=== PATIENT | male | born 1975 | race Caucasian/White ===

== ENCOUNTER 2019-02-21 10:37 | Inpatient (IN) ==
--- NOTE | 2019-02-21 10:58 | Emergency Department Note ---
Disposition Clinical Impression: Suicidal ideation Disposition: Admitted As Inpatient Condition: Good Forms: ED Satisfaction Letter Time of Disposition: 14:10 Psych HPI - General Chief Complaint: ED Psychiatric Symptoms Stated Complaint: SI Time Seen by Provider: 02/21/19 10:48 Source: patient, EMS Mode of arrival: EMS Nursing Notes Reviewed: Yes Vital Signs Reviewed: Yes - History of Present Illness HPI Narrative: This is a 43-year-old gentleman with a long psychiatric history who presents today for evaluation for suicidal ideation. Patient states that he was recently diagnosed with cirrhosis and states that he is tired of living. He states that he wants to drink himself to . He has been drinking heavily. His last intake was yesterday. Patient was seen at our sister facility and had a medical workup. He was sent here for evaluation by psychiatry for admission. He complains of some nausea but no vomiting. He has no new physical complaints. Pt complaint: suicidal ideation, feels depressed Onset (ago): day(s) History of similar episodes: Yes Context: recent alcohol abuse Associated Psychiatric Symptoms: depression, suicidal ideation - Related Data Home Medications Medication Instructions Recorded Confirmed Benztropine [Cogentin] 5 mg PO DAILY 02/21/19 02/21/19 OLANZapine [Zyprexa Zydis] 10 mg PO BID 02/21/19 02/21/19 chlorproMAZINE [Thorazine] 100 mg PO DAILY 02/21/19 02/21/19 Previous Rx's Medication Instructions Recorded Nicotine Patch [Nicoderm] 21 mg TD DAILY #30 patch.[id number] 02/20/19 Tramadol HCl [Ultram] 50 mg PO TID PRN 4 Days #12 tab 02/20/19 Allergies Allergy/AdvReac Type Severity Reaction Status Date / Time Cyclobenzaprine Allergy Rash Verified 02/19/19 10:45 [From Flexeril] hydroxyzine [From Vistaril] Allergy Swelling Verified 02/19/19 10:45 of Lip/Tongue/Throat ketorolac [From Toradol] Allergy Rash Verified 02/19/19 10:45 naproxen [From Naprosyn] Allergy Hives Verified 02/19/19 10:45 Penicillins Allergy Rash Verified 02/19/19 10:45 haloperidol [From Haldol] AdvReac Agitated Verified 02/19/19 10:45 ibuprofen AdvReac Abdominal Verified 02/19/19 10:45 Pain All systems ED: reviewed and negative except as stated. Constitutional: Denies: fever, chills Cardiovascular: Denies: chest pain, palpitations Respiratory: Denies: cough, dyspnea Gastrointestinal: Reports: abdominal pain, nausea. Denies: vomiting Psychiatric: Reports: depression, suicidal thoughts. Denies: homicidal thoughts, auditory hallucinations, visual hallucinations Past Medical History - Past Medical History Medical history: Reports: arthritis, cirrhosis, COPD, hypertension, myocardial infarction, TIA Surgical history: Reports: orthopedic, other Psychiatric history: Reports: schizophrenia, previous psychiatric hospitalization - Social History Smoking Status: Current every day smoker Smokeless Tobacco Status: Yes Alcohol use: Reports: heavy, recent Drug use: Reports: opiates, marijuana, other Physical Exam - General Limitations: no limitations General appearance: alert - Head Head exam: atraumatic, normocephalic, normal inspection - Eye Eye exam: Present: normal appearance, PERRL, EOMI - Expanded Eye Exam Pupils: Left: reactive - ENT ENT exam: normal exam, normal oropharynx, mucous membranes moist - Expanded ENT Exam External ear exam: Present: normal external inspection Mouth exam: Present: normal external inspection Teeth exam: Present: normal inspection Throat exam: Present: normal inspection - Neck Neck exam: Present: normal inspection, full ROM, trachea midline - Chest Chest inspection: Present: normal inspection, symmetric chest wall rise - Respiratory Respiratory exam: Present: normal lung sounds bilaterally - Cardiovascular Cardiovascular exam: Present: regular rate, normal rhythm, normal heart sounds - Abdominal Exam Abdominal exam: Present: soft, Non-Tender. Absent: tenderness, distention, guarding, rebound, rigidity - Extremities Exam Extremities exam: Present: normal inspection, full ROM. Absent: tenderness, pedal edema - Expanded Upper Extremity Exam Shoulder exam: Present: normal inspection, full ROM Arm exam: Present: normal inspection, full ROM Elbow exam: Present: normal inspection, full ROM Forearm/Wrist exam: Present: normal inspection, full ROM Hand exam: Present: normal inspection, full ROM Vascular exam: Normal: capillary refill, radial pulse - Expanded Lower Extremity Exam Hip/Pelvis exam: Present: normal inspection, full ROM Upper leg exam: Present: normal inspection, full ROM Knee exam: Present: normal inspection, full ROM Lower leg exam: Present: normal inspection, full ROM Ankle exam: Present: normal inspection, full ROM Foot/toe exam: Present: normal inspection, full ROM Neurovascular/Tendon exam: Absent: motor deficit, sensory deficit, tendon deficit - Back Exam Back exam: Present: normal inspection, full ROM. Absent: tenderness - Neurological Exam Neurological exam: Present: alert, oriented X3 - Expanded Neurological Exam Patient oriented to: Present: person, place, time Coma Scale Eye Opening: Spontaneous Coma Scale Motor Response: Obeys Commands Coma Scale Verbal Response: Oriented Coma Scale Total: 15 - Psychiatric Psychiatric exam: Present: depressed, flat affect, suicidal ideation - Expanded Psychiatric Exam Expanded psych exam: Present: poor eye contact - Skin Skin exam: Present: warm, dry, intact, normal color Course Vital Signs Temperature 98.2 F 02/21/19 10:41 Pulse Rate 77 02/21/19 10:41 Respiratory Rate 18 02/21/19 10:41 Blood Pressure 137/81 02/21/19 10:41 O2 Sat by Pulse Oximetry 97 02/21/19 10:41 Temperature 98.2 F 02/21/19 10:41 Pulse Rate 77 02/21/19 10:41 Respiratory Rate 18 02/21/19 10:41 Blood Pressure 137/81 02/21/19 10:41 O2 Sat by Pulse Oximetry 97 02/21/19 10:41 Oxygen Delivery Oxygen Delivery Room Air Psych - MDM Narrative Medical decision making narrative: Treatment the patient is insistent with suicidal ideation. I reviewed labs done today. Pt is medically cleared for BH assessment and placement. 1410 Patient has been seen by psychiatric team. Patient will be admitted. Psychiatric Medical Clearance - Medical Clearance Checklist Medical History: No Social History Section defined Current Vitals: Last Vital Signs Temp 98.2 F 02/21/19 10:41 Pulse 77 02/21/19 10:41 Resp 18 02/21/19 10:41 BP 137/81 02/21/19 10:41 Pulse Ox 97 02/21/19 10:41 Statement of Medical Clearance: I have evaluated the patient, reviewed diagnostic information, and certify that the patient's medical condition is sufficiently stable that transfer to the psychiatric unit does not pose a significant risk of deterioration.
[2019-02-21] MEDS ORDERED: *HR* LORazepam 1 MG TABLET PO PRN (16:44)
[2019-02-21] MEDS ORDERED: MOM Conc 10 ML UD.LIQ PO PRN (16:44)
[2019-02-21] MEDS ORDERED: Haloperidol Lactate 5 MG/ML VIAL IM PRN (16:44)
[2019-02-21] MEDS ORDERED: Ibuprofen 400 MG TABLET PO PRN (16:44)
[2019-02-21] MEDS ORDERED: *HR* LORazepam 2 MG/ML VIAL IM PRN (16:44)
[2019-02-21] MEDS ORDERED: Mag Hydrox/Al Hydrox/Simeth 30 ML UDC PO PRN (16:44)
[2019-02-21] MEDS ORDERED: hydrOXYzine pamoate 25 MG CAPSULE PO PRN (16:44)
[2019-02-21] MEDS: OLANZapine 10 MG TAB.RAPDIS PO SCH (21:48)
--- NOTE | 2019-02-22 09:43 | Psychiatry History & Physical ---
Date of Encounter: 02/22/19 Time of Encounter: 09:41 History of Present Illness Patient Stated Chief Complaint: Suicidal Ideation Medicare Admission Attestation: For traditional Medicare patients the provided hospital inpatient services are reasonable and necessary and in the case of services not specified as inpatient-only under 42 CFR 419.22 (n), that they are appropriately provided as inpatient services in accordance 42 CFR 412.3. For Critical Access Hospital the patient may reasonably be expected to be discharged or transferred to a hospital within 96 hours after admission to the Critical Access Hospital. Admitted From: Emergency Dept Plans for Post Hospital Care: Home History of Present Illness: Mr. Mclaughlin is a 43 year old male with history of Hepatitis C, cirrhosis, current alcohol abuse, CAD, CVA, recently diagnosed kidney tumor, and psychiatric illnesses currently prescribed Zyprexa presents to ED yesterday after was discharged from [facility] unit the day before for suicidal ideation. His last hospital admission 02/19 was also for SI and alcohol withdrawal. He states that he was overburdened by the news of his recently diagnosed illnesses and says that he could not take it anymore and so wanted to drink himself to . He stopped taking the medications prescribed to him about 3 weeks ago, thats when he started drinking heavily, 14-16 beers a day. Before learning about his diagnoses, he was sober for 1 month; before that, patient was drinking approximately 6 beers per day. Patient was seen and examined at bedside today. Patient is AOx3. He reports that he came to the ED because he was not doing well, "it's my health". Denies EtOH intake between the admissions. Denies current and past suicidal and homicidal ideation. No visual or auditory hallucinations. Reports feeling hopeless, weak, poor appetite but still enjoys food. Denies history of manic episodes or high- low cycling. Admits to history of anxiety, panic attacks, depression, and schizophrenia. Reports feeling well on Mellaril and Zyprexa in the past but he stopped taking them 3 weeks ago. No tremors or hallucinations on exam today. Endorses smoking "sometimes" and a remote history of marijuana use. Past Med Surg Social Fam HX - Past Medical History Medical history: arthritis, cirrhosis, COPD, hypertension, myocardial inf arction, TIA - Past Surgical History Surgical History: orthopedic, other - Social History Smoking Status: Current every day smoker Smokeless Tobacco Status: Yes Alcohol use: heavy, recent Drug use: opiates, marijuana, methamphetamine, other - Family History Mother Living Status: Still Living Father Living Status: Hx Family Cardiac Disorders: Yes (hypertension, pacemaker) Hx Family Cancer: Yes Medications & Allergies Nicotine Patch [Nicoderm] 21 mg TD DAILY #30 patch.td24 02/20/19 [Rx] Tramadol HCl [Ultram] 50 mg PO TID PRN 4 Days #12 tab 02/20/19 [Rx] Benztropine [Cogentin] 5 mg PO DAILY 02/21/19 [History] OLANZapine [Zyprexa Zydis] 10 mg PO BID 02/21/19 [History] chlorproMAZINE [Thorazine] 100 mg PO DAILY 02/21/19 [History] Allergy/AdvReac Type Severity Reaction Status Date / Time Cyclobenzaprine Allergy Rash Verified 02/19/19 10:45 [From Flexeril] hydroxyzine [From Vistaril] Allergy Swelling Verified 02/19/19 10:45 of Lip/Tongue/Throat ketorolac [From Toradol] Allergy Rash Verified 02/19/19 10:45 naproxen [From Naprosyn] Allergy Hives Verified 02/19/19 10:45 Penicillins Allergy Rash Verified 02/19/19 10:45 haloperidol [From Haldol] AdvReac Agitated Verified 02/19/19 10:45 ibuprofen AdvReac Abdominal Verified 02/19/19 10:45 Pain Review of Systems Constitutional: Denies: fever, chills Eyes: Denies: vision change Ears, Nose, Throat: Denies: hearing loss Cardiovascular: Denies: chest pain Respiratory: Denies: cough, dyspnea Gastrointestinal: Denies: abdominal pain, nausea, vomiting Genitourinary male: Denies: urgency, dysuria Musculoskeletal: Reports: back pain, joint pain Integumentary: Denies: rash, lesions Neurological: Denies: headache Psychiatric: Reports: depression, anxiety, suicidal ideation, anhedonia, difficulty concentrating, irritability. Denies: change in appetite, homicidal ideation, auditory hallucinations, visual hallucinations, confusion, memory loss Endocrine: Reports: fatigue Hematologic/Lymphatic: Denies: easy bleeding, easy bruising Allergic/Immunologic: Denies: urticaria Exam - HEENT Head exam IM: Present: atraumatic, normocephalic Eye exam IM: Present: EOMI, normal appearance ENT exam IM: Present: mucous membranes moist - Neurological Neurological exam: Present: CN II-XII intact (grossly) - Respiratory Respiratory exam IM: Absent: respiratory distress - GI/Abdominal GI/Abdominal exam IM: Absent: no peritoneal signs - Extremities Extremities exam IM: Present: full ROM - Skin Skin exam IM: Present: dry, warm. Absent: abrasion - Constitutional Vitals: Temp Pulse Resp BP Pulse Ox 98.1 F 65 14 114/71 96 02/21/19 21:00 02/21/19 21:00 02/21/19 21:00 02/21/19 21:00 02/21/19 21:00 General appearance: age & developmentally appropriate, well-nourished, average - Musculoskeletal Gait: normal Station: relaxed Strength & Tone: normal for patient - Psychiatric Patient Orientation: Yes Person, Yes Time, Yes Place, Yes Circumstance Level of alertness: Alert, Follows commands Behavior: calm, cooperative, withdrawn Psychomotor activity: Normal Eye Contact: Maintains Eye Contact Mood Description: Depressed Affect description: flat Speech Volume: Normal Speech pattern: normal rate, normal rhythm, normal tone, fluent, spontaneous Language & Vocabulary: consistent with education Thought Process: Intact, Logical, Goal Oriented Thought Content: Yes Suicidal ideation, No Homicidal ideation, No Overt delusions Perceptual Disturbances: No Auditory hallucinations, No Visual hallucinations Attention Span Ability: Capable of Focused Attention Memory Description: Grossly Intact Patient Reliability: Reliable Historian Fund of knowledge: Yes average Intelligence Estimate: Average Judgment: Fair Insight: Partial Assessment and Plan (1) Severe major depression without psychotic features Current visit: Yes Status: Acute Plan: Admit inpatient for safety and stabilization, Close observation, Suicide Precautions per unit protocol, Encourage participation in unit milieu, Group Therapy, Monitor sleep, Monitor appetite Additional Plan: Currently denies SI/HI/ hallucinations or delusions Will continue zyprexa Will begin cymbalta 30 mg Risks, benefits, side effects, alternatives discussed w/pt: Yes Patient agreeable to treatment: Yes Plans for Post Hospital Care: Home Estimated Length of Stay (Days): 3 (2) Alcohol use disorder Current visit: Yes Status: Acute Plan: Admit inpatient for safety and stabilization, Close observation, Suicide Precautions per unit protocol, Encourage participation in unit milieu, Group Therapy, Monitor sleep, Monitor appetite Additional Plan: History of significant alcohol use Denies use between discharge on the and readmission on the Unlikely that he will experience withdrawal symptoms as he was detoxed on the - just prior to readmission Risks, benefits, side effects, alternatives discussed w/pt: Yes Patient agreeable to treatment: Yes Plans for Post Hospital Care: Home - Attending Attestation I examined this patient and my medical decision-making was reviewed with the Resident Physician. I agree with the documented findings, disposition and treatment plan as described except to the extent set forth below. Patient is known to me from the consult service. On the consult service he was inconsistent about his controlled substance use and despite evidence to the contrary tried to tell us that he had active prescriptions even after we had [facility] information. We went even further and discussed with the pharmacist he said he did not have any prescriptions for benzodiazepines or opiates since November 2018 and those were for only a few day supply. At this time he continues to report depression and some suicidal ideations. He is homeless. We will start Cymbalta 30 mg by mouth every morning.
[2019-02-22] MEDS: OLANZapine 10 MG TAB.RAPDIS PO SCH (20:31)
--- NOTE | 2019-02-23 11:13 | Psychiatry Progress Note ---
Date of Encounter: 02/23/19 Time of Encounter: 11:11 Subjective Interval history: Patient was examined at bedside today. No acute events overnight or new complaints to report. Reports improved mood, good appetite, sleep, and overall energy. Denies SI/HI, hallucinations or delusions. Has not participated in group therapy. Denies withdrawal symptoms. Denies side effects from Cymbalta. Review of Systems Constitutional: Denies: fever, chills Eyes: Denies: vision change Ears, Nose, Throat: Denies: hearing loss Cardiovascular: Denies: chest pain, palpitations Respiratory: Denies: cough, dyspnea Gastrointestinal: Denies: abdominal pain, nausea, vomiting Genitourinary male: Denies: urgency, dysuria Musculoskeletal: Denies: back pain, joint swelling Integumentary: Denies: rash, lesions Neurological: Denies: headache, weakness Psychiatric: Reports: depression, anxiety, anhedonia, difficulty concentrating, irritability. Denies: suicidal ideation, change in appetite, homicidal ideation, auditory hallucinations, visual hallucinations, confusion, memory loss Endocrine: Reports: fatigue. Denies: heat or cold intolerance Hematologic/Lymphatic: Denies: easy bleeding, easy bruising Allergic/Immunologic: Denies: urticaria Results - Vital Signs Vital Signs: Temp Pulse Resp BP Pulse Ox 97.9 F 89 18 124/82 97 02/23/19 09:00 02/23/19 09:00 02/23/19 09:00 02/23/19 09:00 02/23/19 09:00 Assessment and Plan (1) Severe major depression without psychotic features Current visit: Yes Status: Acute Plan: Continue hospitalization, Close observation, Suicide Precautions per unit protocol, Encourage participation in unit milieu, Group Therapy, Monitor sleep, Monitor appetite Additional Plan: Denies SI/HI/ hallucinations or delusions Mood is improved Continue zyprexa and cymbalta Risks, benefits, side effects, alternatives discussed w/pt: Yes Patient agreeable to treatment: Yes (2) Alcohol use disorder Current visit: Yes Status: Acute Risks, benefits, side effects, alternatives discussed w/pt: Yes Patient agreeable to treatment: Yes (3) Hypertension Current visit: No Status: Chronic Additional Plan: Continue home medications, lisinopril 5 mg and metoprolol 12.5 mg BID Qualifiers: Hypertension type: unspecified Qualified Code(s): I10 - Essential (primary) hypertension Consult Discharge Plan - Plan Referrals: NONE,PCP [Primary Care Provider] - - Attending Attestation I examined this patient and my medical decision-making was reviewed with the Resident Physician. I agree with the documented findings, disposition and treatment plan as described except to the extent set forth below. Patient is tolerating the Cymbalta. He is mostly in his bed and withdrawn. Not engaging in groups. Psychiatry Exam - Constitutional Vitals: Temp Pulse Resp BP Pulse Ox 97.9 F 89 18 124/82 97 02/23/19 09:00 02/23/19 09:00 02/23/19 09:00 02/23/19 09:00 02/23/19 09:00 General appearance: age & developmentally appropriate - Musculoskeletal Gait: normal Station: relaxed Strength & Tone: normal for patient - Psychiatric Patient Orientation: Yes Person, Yes Time, Yes Place, Yes Circumstance Level of alertness: Alert, Follows commands Behavior: calm, cooperative, withdrawn Psychomotor activity: Normal Eye Contact: Minimal Contact Mood Description: Depressed Affect description: blunted Speech Volume: Normal Speech pattern: normal rate, normal rhythm, normal tone, fluent, spontaneous Language & Vocabulary: consistent with education Thought Process: Intact, Logical, Goal Oriented Thought Content: No Suicidal ideation, No Homicidal ideation Perceptual Disturbances: No Auditory hallucinations, No Visual hallucinations Attention Span Ability: Capable of Focused Attention Memory Description: Grossly Intact Patient Reliability: Reliable Historian Fund of knowledge: Yes average Intelligence Estimate: Average Judgment: Fair Insight: Partial
[2019-02-23] MEDS: OLANZapine 10 MG TAB.RAPDIS PO SCH (20:34)
[2019-02-23] MEDS: traZODone 50 MG TABLET PO PRN (20:34)
[2019-02-24] MEDS: OLANZapine 10 MG TAB.RAPDIS PO SCH (19:48)
[2019-02-24] MEDS: Nicotine 21 MG PATCH.TD24 TD SCH (21:20)
[2019-02-25] MEDS: Nicotine 21 MG PATCH.TD24 TD SCH (09:14)
--- NOTE | 2019-02-25 14:07 | Psychiatry Progress Note ---
Date of Encounter: 02/25/19 Time of Encounter: 14:00 Subjective Interval history: Client very med seeking today. Asking for "shots" of Ativan. Also requesting Tramadol, Seroquel, Klonopin, and Thorazine. Claims he was recently in [place] for several weeks and prior to that [facility]. Did not follow-up with outpatient care after discharge. Drinks heavily. Asking to go to an inpatient rehab. Also asking to go to [facility] [place]. Seems willing to go anywhere that will take care of him. Continues to endorse vague SI. Suspect there is an element of malingering. Clearly knows all the sedating meds. However, he did not get upset when told we wouldn't be using any of these for no w. Will attempt to get records from [facility]. Client also reports new diagnoses of Hep C and Cirrhosis. Unclear who told him this. Client states he was supposed to see a GI doctor at [facility] but did not have transportation. It seems like [facility] was the last place he was hospitalized so hopefully their records will have the most up to date information regarding his mental and physical health issues. No t attending groups during the day. Will attend evening groups so he can have the snacks. Asking for Ensure shakes. Obese and does not need the extra caloric intake. Review of Systems Constitutional: Denies: fever, chills, weakness, weight change Eyes: Denies: eye pain, vision change Ears, Nose, Throat: Denies: ear pain, throat pain, dental pain, hearing loss, congestion Cardiovascular: Denies: chest pain, palpitations, dyspnea on exertion Respiratory: Denies: cough, dyspnea, wheezes Gastrointestinal: Denies: abdominal pain, nausea, vomiting, diarrhea, constipation Musculoskeletal: Denies: joint swelling, joint pain Neurological: Denies: headache, weakness, numbness, memory loss Psychiatric: Reports: depression, anxiety, anhedonia, difficulty concentrating, irritability. Denies: suicidal ideation, change in appetite, homicidal ideation, auditory hallucinations, visual hallucinations, confusion, memory loss Results - Vital Signs Vital Signs: Temp Pulse Resp BP Pulse Ox 98 F 102 18 103/69 97 02/25/19 09:00 02/25/19 09:00 02/25/19 09:00 02/25/19 09:47 02/25/19 09:00 Assessment and Plan (1) Severe major depression without psychotic features Current visit: Yes Status: Acute Plan: Continue hospitalization, Close observation, Suicide Precautions per unit protocol, Encourage participation in unit milieu, Group Therapy, Monitor sleep, Monitor appetite Risks, benefits, side effects, alternatives discussed w/pt: Yes Patient agreeable to treatment: Yes (2) Alcohol use disorder Current visit: Yes Status: Acute Plan: Continue hospitalization, Close observation, Suicide Precautions per unit protocol, Encourage participation in unit milieu, Group Therapy, Monitor sleep, Monitor appetite Risks, benefits, side effects, alternatives discussed w/pt: Yes Patient agreeable to treatment: Yes Consult Discharge Plan - Plan Referrals: NONE,PCP [Primary Care Provider] - Psychiatry Exam - Constitutional Vitals: Temp Pulse Resp BP Pulse Ox 98 F 102 18 103/69 97 02/25/19 09:00 02/25/19 09:00 02/25/19 09:00 02/25/19 09:47 02/25/19 09:00 General appearance: obese - Musculoskeletal Gait: normal Station: relaxed Strength & Tone: normal for patient - Psychiatric Patient Orientation: Yes Person, Yes Time, Yes Place Level of alertness: Alert Behavior: calm, cooperative Psychomotor activity: Normal Eye Contact: Maintains Eye Contact Mood Description: Depressed Affect description: congruent with mood Speech Volume: Normal Speech pattern: normal rate, normal rhythm, normal tone, fluent, spontaneous Language & Vocabulary: consistent with education Thought Process: Linear, Goal Oriented Thought Content: Yes Suicidal ideation, No Homicidal ideation, No Overt delusions Perceptual Disturbances: No Auditory hallucinations, No Visual hallucinations Attention Span Ability: Capable of Focused Attention Memory Description: Grossly Intact Patient Reliability: Questionable Historian Fund of knowledge: Yes abstraction ability Intelligence Estimate: Average Judgment: Limited Insight: Partial
--- NOTE | 2019-02-25 17:51 | Psychiatry Progress Note ---
Date of Encounter: 02/24/19 Time of Encounter: 09:00 Subjective Interval history: Late entry for 02/24/19 Patient continued to report depressed mood with sadness and decreased interests, and hopelessness. Tolerating medications. Going to a few groups. He continues to seek benzos. Review of Systems Psychiatric: Reports: depression, anxiety, anhedonia, difficulty concentrating, hopelessness, irritability. Denies: suicidal ideation, change in appetite, homicidal ideation, auditory hallucinations, visual hallucinations, confusion, memory loss Results - Vital Signs Vital Signs: Temp Pulse Resp BP Pulse Ox 98 F 102 18 103/69 97 02/25/19 09:00 02/25/19 09:00 02/25/19 09:00 02/25/19 09:47 02/25/19 09:00 Assessment and Plan (1) Severe major depression without psychotic features Current visit: Yes Status: Acute Plan: Continue hospitalization Additional Plan: increase cymbalta to 60mg qam, encourage groups, linkage. Risks, benefits, side effects, alternatives discussed w/pt: Yes Patient agreeable to treatment: Yes (2) Alcohol use disorder Current visit: Yes Status: Acute Risks, benefits, side effects, alternatives discussed w/pt: Yes Patient agreeable to treatment: Yes (3) Hypertension Current visit: No Status: Chronic Qualifiers: Hypertension type: unspecified Qualified Code(s): I10 - Essential (primary) hypertension Consult Discharge Plan - Plan Referrals: NONE,PCP [Primary Care Provider] - Psychiatry Exam - Constitutional Vitals: Temp Pulse Resp BP Pulse Ox 98 F 102 18 103/69 97 02/25/19 09:00 02/25/19 09:00 02/25/19 09:00 02/25/19 09:47 02/25/19 09:00 General appearance: age & developmentally appropriate, well-groomed, well- nourished - Musculoskeletal Gait: normal Station: relaxed Strength & Tone: normal for patient - Psychiatric Patient Orientation: Yes Person, Yes Time, Yes Place Level of alertness: Alert Behavior: calm, cooperative Psychomotor activity: Normal Eye Contact: Maintains Eye Contact Mood Description: Depressed Patient description of mood: sad Affect description: congruent with mood, full range Speech Volume: Normal Speech pattern: normal rate, normal rhythm, normal tone, fluent, spontaneous Language & Vocabulary: consistent with education Thought Process: Linear, Goal Oriented Thought Content: No Suicidal ideation, No Homicidal ideation, No Overt delusions Perceptual Disturbances: No Auditory hallucinations, No Visual hallucinations Attention Span Ability: Capable of Focused Attention Memory Description: Grossly Intact Patient Reliability: Reliable Historian Fund of knowledge: Yes abstraction ability, Yes aware of current events Intelligence Estimate: Average Judgment: Fair Insight: Partial
[2019-02-25] MEDS: OLANZapine 10 MG TAB.RAPDIS PO SCH (20:15)
[2019-02-25] MEDS: traZODone 50 MG TABLET PO PRN (21:51)
[2019-02-26] MEDS: Nicotine 21 MG PATCH.TD24 TD SCH (09:17)
[2019-02-26 09:57] VITALS: BP 133/85
--- NOTE | 2019-02-26 11:58 | Discharge Summary ---
Date of Encounter: 02/26/19 Time of Encounter: 11:56 Diagnosis - Discharge Diagnosis (1) Severe major depression without psychotic features Status: Acute (2) Alcohol use disorder Status: Acute Medications - Discharge Medications Prescriptions: DULoxetine [Cymbalta] 60 mg PO DAILY #60 capsule. Transmission Status: Pending to [facility] Metoprolol [Lopressor] 12.5 mg PO BID #60 tablet Transmission Status: Pending to [facility] Lisinopril [Zestril] 5 mg PO DAILY #30 tablet Transmission Status: Pending to [facility] Nicotine Patch [Nicoderm] 21 mg TD DAILY #30 patch.[id number] 02/20/19 [Rx] Tramadol HCl [Ultram] 50 mg PO TID PRN 4 Days #12 tab 02/20/19 [Rx] DULoxetine [Cymbalta] 60 mg PO DAILY #60 capsule. 02/26/19 [Rx] Lisinopril [Zestril] 5 mg PO DAILY #30 tablet 02/26/19 [Rx] Metoprolol [Lopressor] 12.5 mg PO BID #60 tablet 02/26/19 [Rx] OLANZapine [Zyprexa Zydis] 20 mg PO HS tab.rapdis 02/26/19 [Rx] Allergy/AdvReac Type Severity Reaction Status Date / Time Cyclobenzaprine Allergy Rash Verified 02/19/19 10:45 [From Flexeril] hydroxyzine [From Vistaril] Allergy Swelling Verified 02/19/19 10:45 of Lip/Tongue/Throat ketorolac [From Toradol] Allergy Rash Verified 02/19/19 10:45 naproxen [From Naprosyn] Allergy Hives Verified 02/19/19 10:45 Penicillins Allergy Rash Verified 02/19/19 10:45 haloperidol [From Haldol] AdvReac Agitated Verified 02/19/19 10:45 ibuprofen AdvReac Abdominal Verified 02/19/19 10:45 Pain Provider Date of admission: 02/21/19 16:06 Primary care physician: PCP NONE Discharging clinician: Stephany Strauss Psychiatry Exam - Constitutional Vitals: Temp Pulse Resp BP Pulse Ox 97.2 F L 74 16 133/85 98 02/26/19 09:00 02/26/19 09:00 02/26/19 09:00 02/26/19 09:00 02/26/19 09:00 General appearance: age & developmentally appropriate, well-groomed, well- nourished - Musculoskeletal Gait: normal Station: relaxed Strength & Tone: normal for patient - Psychiatric Patient Orientation: Yes Person, Yes Time, Yes Place Level of alertness: Alert Behavior: calm, cooperative Psychomotor activity: Normal Eye Contact: Maintains Eye Contact Mood Description: Euthymic/stable Affect description: congruent with mood, full range Speech Volume: Normal Speech pattern: normal rate, normal rhythm, normal tone, fluent, spontaneous Language & Vocabulary: consistent with education Thought Process: Linear, Goal Oriented Thought Content: No Suicidal ideation, No Homicidal ideation, No Overt delusions Perceptual Disturbances: No Auditory hallucinations, No Visual hallucinations Attention Span Ability: Capable of Focused Attention Memory Description: Grossly Intact Patient Reliability: Questionable Historian Fund of knowledge: Yes abstraction ability Intelligence Estimate: Average Judgment: Limited Insight: Partial Hospital Course Hospital course: Mr. Mclaughlin is a 43 year old male who was admitted for SI. He was started on his home meds with the addition of Cymbalta. Client had a good clinical response to this medication. His mood improved and today he is denying SI, intent, or plan. He had originally requested to go to [facility]. However, client has his own home and [facility] was concerned about the drugs in his system at the time of presentation. It was suggested that client consider an inpatient rehab but he denied wanting this and elected to return home instead. On the unit he has been sleeping and eating well. He has avoided groups but did attend those associated with evening snack time. Today he is future oriented and stating he feels safe to go home. He has been very med seeking while here and even today he is asking for benzos and Tramadol. Discussed why these were not used this admission and client has evidenced no signs of withdrawal. Client will be contacted early next week with appointments to follow up with a Psychiatrist and counselor. Will also help him reestablish care with a PCP and a GI specialist if he wants assistance with these things. Client receives support from family and actually left staff with his mother's cell phone number as the best way to get a hold of him. Total time spent with client greater than 30 minutes. Patient was educated of his diagnosis and the risks, benefits, and side effects of this treatment and alternative treatment options and was monitored for responsiveness and side effects. Mood, anxiety, sleep, appetite, and interest improved, as did future orientation. Self-harm thoughts subsided, thinking cleared, psychosis resolved, and mood stabilized. Patient was able to attend both individual and group therapy sessions as well as meeting with the psychiatrist daily and urged to discuss any medication or treatment issues or other concerns. The patient was educated primarily by verbal means about their diagnosis and manifestations in their life. The option for treatment including group and individual therapy programming was offered to the patient in the use of medications with all their potential risks, benefits, and side effects were discussed with the patient at length. The patient was given the opportunity to ask questions and was noted to participate in the treatment in the planning process. The patient felt ready and eager to be discharged from the inpatient psychiatric unit to continue on with treatment as an outpatient. The patient agreed that he is safe for this disposition. The patient was considered to be able to participate in informed consent and decision making with respect to medical, legal, and financial issues of the time of discharge. At the time of discharge the patient adamantly denied any concerns for lethality including suicidal or homicidal thoughts ideations or plans and was future oriented toward ongoing mental health care, medical follow-up and sobriety. - Time Spent with Patient Total time spent providing and/or coordinating discharge services: Greater than 30 minutes Assessment and Plan - Patient/Caregiver Discharge Instructions Activity: resume usual activities as tolerated Diet: low fat, low cholesterol - Follow up Plan Follow up with: NONE,PCP [Primary Care Provider] - Functional capacity at discharge: independent ambulation Overall status at discharge: Stable Disposition: Home, Self-Care Quality - Multiple Antipsychotics Patient discharged on 2 or more antipsychotic medications: No Procedures - Procedures Procedures: Medication Management, Crisis Stabilization, Supportive Therapy, Group Therapy
== END 2019-02-26 18:20 | disposition home or self-care (01) | DRG 751 ==
LOC: EMEROOARM 10:37 → 1ANU 16:06
PROVIDERS: ADMIT Psychiatry & Neurology Psychiatry; ATTEND Psychiatry & Neurology Psychiatry